=== PATIENT | male | born 1995 | race Caucasian/White ===

== ENCOUNTER 2020-02-27 02:27 | Emergency (ER) | payer OTHER ==
[~2020-02-27] VITALS: Ht 175.3 cm; Wt 72.6 kg
[2020-02-27] MEDS ORDERED: NAPROSYN500 M1 PO (02:33)
[2020-02-27 03:41] VITALS: BP 152/88
== END 2020-02-27 03:42 | disposition home or self-care (01) ==
LOC: ER 02:27
DX: S60.00XA Contusion of unspecified finger without damage to nail, initial encounter (principal); S60.512A Abrasion of left hand, initial encounter; Z79.899 Other long term (current) drug therapy; W23.0XXA Caught, crushed, jammed, or pinched between moving objects, initial encounter; Y93.89 Activity, other specified; Y92.89 Other specified places as the place of occurrence of the external cause; Y99.8 Other external cause status